=== PATIENT | female | born 2005 | race Caucasian/White ===

== ENCOUNTER 2023-01-19 11:33 | Emergency (ER) | payer OTHER, SELFPAY ==
[2023-01-19 11:38] VITALS: BP 127/82; PULSE 98; RESP 16; TEMP 37.5; O2SAT 96; BMI 23.3
[2023-01-19 11:45] VITALS: BP 139/83; PULSE 99; RESP 18; O2SAT 98
--- NOTE | 2023-01-19 12:23 | ED_ITS ---
HPI - Allergic Reaction General: Chief complaint: Allergic Reaction Stated complaint: Allergic Reaction, Throat swelling Time Seen by Provider: 01/19/23 11:45 History of Present Illness: HPI narrative: Patient presents to the ER with complaints of having an anaphylactic reaction with tongue and throat swelling with minimal difficulty breathing. Patient says she was exposed to a vitamin at work and started having a reaction out of immediately. Patient is unknown with what actually caused it. Patient says she has no known allergies. Patient did not take any treatment prior to arrival. Review of Systems General: Reports: 10 or more systems reviewed and unremarkable except in HPI and below Physical Exam Const: COMMON NORMALS: no acute distress, average body habitus, patient oriented x3, no limitations, healthy appearing, alert and well nourished HENMT: COMMON NORMALS: normocephalic, atraumatic, hearing grossly normal bilaterally, external ears normal, Normal external nose present and moist oral mucous membranes HEAD & SCALP: normocephalic and atraumatic NOSE: Normal external nose present EXTERNAL EAR: Yes external ears normal Eye: COMMON NORMALS: Equal, round and reactive pupils present, EOMs intact bilaterally, conjunctivae normal and no scleral icterus CONJUNCTIVA: Yes conjunctivae normal PUPIL: Yes Equal, round and reactive pupils present Neck/C-Spine: COMMON NORMALS: full ROM, no lymphadenopathy, supple, no meningeal signs, no JVD and Thyroid normal THYROID: Thyroid normal Lymph: LYMPHATIC: no lymphadenopathy noted Chest: COMMONS NORMALS: normal inspection of the chest and normal palpation of entire chest wall Resp: COMMON NORMALS: normal respiratory effort, No use of accessory muscles and clear to auscultation bilaterally AUSCULTATION: clear to auscultation bilaterally Cardio: COMMON NORMALS: no JVD, regular rate, regular rhythm, S1 normal heart sound present, S2 normal heart sound present, No gallops present (Cardio), No clicks present (Cardio), No murmurs present (Cardio) and No rub (Cardio) RATE: regular rate RHYTHM: regular rhythm HEART SOUNDS: S1 normal heart sound present and S2 normal heart sound present GI: COMMON NORMALS: Normal to inspection, nondistended, normoactive bowel sounds present, Soft to palpation, non-tender, No hepatosplenomegaly present and no masses PALPATION: Yes Soft to palpation and Yes No hepatosplenomegaly present Neuro: COMMON NORMALS: patient oriented x3 SENSORIUM/ORIENTATION: Yes alert MENINGEAL SIGNS: Yes no meningeal signs Course Vital Signs: Vital signs: Vital Signs Temperature 99.5 F 01/19/23 11:38 Pulse Rate 98 01/19/23 11:38 Respiratory Rate 16 01/19/23 11:38 Blood Pressure 127/82 01/19/23 11:38 Pulse Oximetry 96 01/19/23 11:38 Oxygen Delivery Me thod Room Air 01/19/23 11:38 MDM - Allergic Reaction Medical Decision Making Patient presents to the ER with complaints of allergic reaction and tongue swelling and difficulty breathing. Patient had unknown exposure to a may be a vitamin. Patient never had this reaction before. Patient was given a combination of 1 L of fluid normal saline, 40 mg Pepcid, Benadryl 50 mg, Decadron 10 mg, patient is doing better swallowing easier and eating applesauce. Patient be discharged home with some prednisone for the next couple days and she will be told to follow-up with her PCP as needed. Differential Diagnosis Likely anaphylaxis and adverse reaction to drug; Unlikely allergic reaction, angioedema, contact dermatitis, viral enanthem or urticaria Medical Records I reviewed the patient's medical records. Lab Data I reviewed the patient's lab results. Discharge Plan Discharge Patient Disposition: Home Clinical Impression: Allergic reaction Qualifiers: Encounter type: initial encounter Qualified Code(s): T78.40XA - Allergy, unspecified, initial encounter Condition: Stable Prescriptions: New prednisone 50 mg tablet 50 mg PO DAILY 3 Days Qty: 3 0RF No Action Stress Formula Tablet 1 tab PO DAILY Collagen 1500 Plus C 500 mg-800 mcg- 50 mg Capsule 1 cap PO DAILY Discharge Orders: Discharge ED (Routine); Ordered 01/19/23 Ordered By: Teodoro Saul Patient Instructions: Allergic Reaction Activity Restrictions/Additional Instructions: Please take your medicine as prescribed. Please follow-up with primary care in the next 1 week as needed. If your symptoms return or worsen please feel free to come back to the ER for further evaluation and treatment. Coding Level of Care Code ED Sizing Machine Tender for Loida Moss
[2023-01-19 12:30] VITALS: PULSE 79; O2SAT 99
[2023-01-19] MEDS: dexamethasone 10 mg/mL INJ IVP (12:58)
[2023-01-19] MEDS: famotidine 20 mg/2 mL INJ 40 MG IVP (12:58)
[2023-01-19] MEDS: sodium chloride 0.9% 1,000 ML 999 ML IV (12:58)
[2023-01-19] MEDS: diphenhydrAMINE 50 mg/mL SDV 1mL IVP (12:58)
[2023-01-19 13:00] VITALS: BP 123/84; PULSE 69; RESP 18; O2SAT 98
[2023-01-19 13:30] VITALS: PULSE 79; O2SAT 97
[2023-01-19 14:15] VITALS: BP 118/77; PULSE 78; RESP 18; O2SAT 99
== END 2023-01-19 14:18 | disposition home or self-care (01) ==
PROVIDERS: Emergency Provider Emergency Medicine
DX: T78.40XA Allergy, unspecified, initial encounter (principal); T45.2X5A Adverse effect of vitamins, initial encounter
CPT/HCPCS: 96374; 96375; 99284; J1100; J1200; J3490; J7030

== ENCOUNTER 2024-09-29 19:26 | Emergency (ER) | payer SELFPAY ==
[2024-09-29 19:40] VITALS: BP 128/90; PULSE 103; RESP 16; TEMP 36.9; O2SAT 99
--- NOTE | 2024-09-29 19:52 | CTR_ITS ---
PROCEDURE INFORMATION: Exam: CT Maxillofacial Without Contrast; Mandible Exam date and time: 09/29/2024 8:06 PM Age: 19 years old Clinical indication: Jaw pain; Additional info: Left jaw trauma TECHNIQUE: Imaging protocol: Computed tomography maxillofacial without contrast. Exam focused on the mandible. Radiation optimization: All CT scans at this facility use at least one of these dose optimization techniques: automated exposure control; mA and/or kV adjustment per patient size (includes targeted exams where dose is matched to clinical indication); or iterative reconstruction. COMPARISON: No relevant prior studies available. RADIATION DOSE METRICS: Total DLP (mGy-cm): 635.48 FINDINGS: Bones: Mandible is unremarkable. No acute fracture. Soft tissues: Unremarkable. CT/CT facial bones wo con* [id number] IMPRESSION: Unremarkable mandible.
--- NOTE | 2024-09-29 19:55 | ED_ITS ---
HPI - General Adult General: Chief complaint: General Medical Stated complaint: Jaw popped and can barley open in pain Time Seen by Provider: 09/29/24 19:39 Source: patient Mode of arrival: ambulatory Limitations: no limitations History of Present Illness: 19-year-old female who states that she h ad fell the other day and landed on her left jaw she states she been having some left jaw pain since and states she Ryan big and felt a pop in feels like her bite is off. She is able to open and close her mouth no signs of dislocation states she has pain in that left jaw. Associated symptoms: Deny chest pain, dyspnea, headache(s), nausea, rash or vomiting Related Data Home Medications ?Medication ?Instructions ?Recorded ?Confirmed collagen,hydrolysate 500 mg-biotin 1 cap PO DAILY 12/2301/19/23 800 mcg-ascorbic acid 50 mg capsule (Collagen 1500 Plus C) multivitamin, stress formula 1 tab PO DAILY 01/19/23 0 01/19/23 (Stress Formula tablet) Allergies Allergy/AdvReac Type Severity Reaction Status Date / Time No Known Allergies Allergy Verified 09/29/24 19:45 Review of Systems Const: Denies: fever(s), chills, body aches or change in appetite ENMT: Denies: throat pain or dental pain Card: Denies: chest pain Resp: Denies: dyspnea GI: Denies: abdominal pain, nausea, vomiting or diarrhea Musc: Denies: neck pain or back pain Skin/Breast: Denies: rash Neuro: Denies: headache(s) [facility] ED Female Reproductive History: Date of last menstrual period: 08/14/24 Physical Exam Const: COMMON NORMALS: no acute distress, patient oriented x3 and healthy appearing HENMT: COMMON NORMALS: normocephalic and atraumatic HEAD & SCALP: normocephalic and atraumatic OTHER: Tenderness over left jaw no obvious deformities Eye: COMMON NORMALS: conjunctivae normal CONJUNCTIVA: Yes conjunctivae normal Neck/C-Spine: COMMON NORMALS: full ROM and supple Chest: COMMONS NORMALS: normal inspection of the chest Resp: COMMON NORMALS: normal respiratory effort Cardio: COMMON NORMALS: regular rate, regular rhythm and No murmurs present (Cardio) RATE: regular rate RHYTHM: regular rhythm Extremity: COMMON NORMALS: normal to inspection and full ROM Neuro: COMMON NORMALS: patient oriented x3, moves all extremities and no focal motor deficits Psych: COMMON NORMALS: mental status grossly normal, Normal thought process present and cooperative THOUGHT PROCESS: Normal thought process present Skin: COMMON NORMALS: no rashes or lesions noted and no wounds GENERAL SKIN EXAM: no rashes or lesions noted Course Vital Signs: Vital signs: Vital Signs Temperature 98.4 F 09/29/24 19:40 Pulse Rate 103 H 09/29/24 19:40 Respiratory Rate 16 09/29/24 19:40 Blood Pressure 128/90 09/29/24 19:40 Pulse Oximetry 99 09/29/24 19:40 Oxygen Delivery Me thod Room Air 09/29/24 19:40 MDM - General Adult Medical Decision Making Patient presents with left jaw pain likely contusion from a fall CT here was negative no signs of dislocation or fracture she stable for discharge follow-up with PCP return if worsening Medical Records I reviewed the patient's medical records. Lab Data Radiology Impressions Face CT 09/29/24 19:52 IMPRESSION: Unremarkable mandible. All radiology interpretation(s) finalized by discharge Discharge Plan Discharge Patient Disposition: Home Clinical Impression: Jaw pain Condition: Stable Prescriptions: No Action Stress Formula Tablet 1 tab PO DAILY Collagen 1500 Plus C 500 mg-800 mcg- 50 mg Capsule 1 cap PO DAILY Discharge Orders: Discharge ED (Routine); Ordered 09/29/24 Ordered By: Matilda Sierra Discharge Diet: Advance as tolerated Discharge Activity: Resume usual activity Patient Instructions: Temporomandibular Disorder (ED) Print Language: Polish Coding Level of Care Code ED Farm Operations Technical Director for Loida Moss
[2024-09-29] MEDS: HYDROcodone-acetaminophen 7.5-325 mg Tablet 1 TAB PO (20:46)
[2024-09-29 20:50] VITALS: BP 122/79; PULSE 73; O2SAT 98
== END 2024-09-29 20:54 | disposition home or self-care (01) ==
PROVIDERS: Emergency Provider Emergency Medicine
DX: R68.84 Jaw pain (principal)
CPT/HCPCS: 70486; 99284

== ENCOUNTER → 2024-12-29 11:28 | Outpatient (BNVA) | payer SELFPAY | PROVIDERS: PCP Nurse Practitioner Family; Visit Provider Internal Medicine Cardiovascular Disease | DX: R07.9 Chest pain, unspecified (principal); I45.10 Unspecified right bundle-branch block | CPT/HCPCS: 93005 ==